=== PATIENT | female | born 1960 | race Caucasian/White ===

== ENCOUNTER → 2020-04-02 08:51 | Outpatient (CLI) | payer MEDICARE, MEDICAID, SELFPAY ==
--- NOTE | 2020-04-02 09:29 | CA_ITS ---
APPROVED REPORT EXAM: Comprehensive 2D, Doppler, and color-flow Echocardiogram Electric Meter Tester: Brittany William RDCS Ht: 5 ft 4 in Wt: 211lbs BSA: 2.00 BP: 131/72 mmHg Indications: CAD,CABG,CVA,HTN,HLP,SMOKER 2D Dimensions LVOT 1.40 cm (M/F) 1.5-2.5 M-Mode Dimensions RVDd 3.11 cm (0.9-2.6) LVDd 3.83 cm (3.5-5.7) LVDs 3.03 cm (3.5-5.7) IVSd 1.02 cm (0.6-1.1) PWd 0.87 cm (0.6-1.1) EF (Teich) 43.10% FS 20.90% EDV (Teich) 63.10 mL ESV (Teich) 35.90 mL LV Diastology E/A Ratio 0.90 Mitral Valve MV A Velocity 73.00 (40-130 cm/s) Left Ventricle Left atrium is mildly enlarged, left ventricle is normal size, mild concentric left ventricular hypertrophy, visually estimated ejection fraction 55% with no regional wall motion abnormality. Grade 1 diastolic dysfunction seen without tissue Doppler evidence of raise left atrial pressure. Right Ventricle Right atrium and right ventricle mildly enlarged with normal contractility. Aortic Valve Aortic valve is minimally thickened and fibrosed, there is no aortic stenosis or aortic insufficiency. Mitral Valve Mitral valve leaflets are minimally thickened, there is mild mitral regurgitation. Tricuspid Valve Tricuspid valve is grossly normal, there is mild tricuspid regurgitation, tricuspid regurgitation jet velocity is inadequate for calculation of the right ventricular systolic pressure. Pulmonic Valve Pulmonic valve is poorly visualized. Great Vessels Aortic root is normal size. Pericardium No significant pericardial effusion noted. Conclusion 1. Mild biatrial enlargement, normal left ventricular size, mild concentric left ventricular hypertrophy, visually estimated ejection fraction 55% with no regional wall motion abnormality, grade 1 diastolic dysfunction seen without tissue Doppler evidence of raise left atrial pressure. 2. Mildly enlarged right ventricle with normal contractility. 3. Mild mitral and tricuspid regurgitation. 4. No significant pericardial effusion noted. Electronically signed by : Juanjo Tabares, 04/03/2020 12:20:46
== END ==
PROVIDERS: PCP Family Medicine; Visit Provider Urology
DX: I20.8 Other forms of angina pectoris (principal); I25.10 Atherosclerotic heart disease of native coronary artery without angina pectoris
CPT/HCPCS: 93306

== ENCOUNTER → 2020-07-30 07:56 | Outpatient (CLI) | payer MEDICARE, MEDICAID, SELFPAY ==
--- NOTE | 2020-07-30 | CA_ITS ---
APPROVED REPORT Exam: Pharmacologic Technologist: Robyn Sharma Ht: 5 ft 4 in Wt: 208 lbs BSA: 1.99 m2 HR: 76 bpm BP: 159/89 mmHg Indications: CAD, Carl Medical History Medications: Levothyroxine,,,,, Isosorbide,,,,, Aspirin,,,,, Gabapentin,,,,, Pantoprazole,,,,, Atorvastatin,,,,, CloPIdogrel,,,,, Baclofen,,,,, BuPROPION,,,,, Fluoxetine,,,,, Nitroglycerin,,,,, DAntrolene,,,,, Stress Test Details Test: LEXISCAN HR Resting HR: 86 bpm Max Heart Rate (APMHR): 161 bpm Max HR Achieved: 122 bpm Target HR (85% APMHR): 136 bpm % of APMHR: 75 Recovery HR: 89 bpm BP Resting BP: 159.0/89.0 mmHg Max BP: 170.0/90.0 mmHg Recovery BP: 152.0/79.0 mmHg ECG Clinical Exercise duration: 04:00 min Highest Stage Achieved: Stress ECG Conclusion Resting EKG: Normal sinus rhythm, low voltage QRS, ST-T abnormalities. Symptoms: Mild shortness of air, stomach discomfort and malaise. No chest pain. Arrhythmias/Ectopy: Rare fusion beats ST-T Changes: Mild exaggeration of baseline abnormalities. Conclusion: Unremarkable Lexiscan stress. Myoview images reported separately. Electronically signed by : Juanjo Tabares, 07/31/2020 10:18:31
--- NOTE | 2020-07-30 07:56 | NM_ITS ---
APPROVED REPORT Exam: Nuclear Stress Test Indication: cad, cabg, htn, hyperlipidemia, tob use, fm hx, sob Patient Location: Outpatient Stress Tech: Robyn Sharma NM Tech:Sabrina Dugan, ARRT, RT (R)(N) Ht: 5 ft 4 in Wt: 208 lbs Bra Size: 40DD BP: 159/89 mmHg BSA: 1.99 m2 BMI: 35.6 History: cad, cabg, htn, hyperlipidemia, tob use, fm hx, sob PT COULD NOT LAY ON HER STOMACH FOR PRONE IMAGES DUE TO MASSIVE STROKE LIMITING HER ABILITY TO ROLL. Procedure: Patient received a 0.4 mg of intravenous Lexiscan, resting heart rate 76 bpm, resting blood pressure 159/89 mmHg, with Lexiscan maximum heart rate achived was 120 bpm which is Less than 85 % of the maximum predicted heart rate and blood pressure was 170/90 mmHg. Electrocardiogram Resting electrocardiogram showed sinus rhythm nonspecific ST-T changes, with Lexiscan there is less than 1.[address] segment depression noted from the baseline EKG, the EKG portion of the Lexiscan is nondiagnostic. Cardiac Stress and Resting SPECT Images: Cardiac Stress and Resting SPECT images were obtained using technetium 99m Myoview 31.4 mCi stress and 10.28 mCi at rest. Gated SPECT for analysis of segmental wall motion and calculation of the ejection fraction also done. Cardiac stress and resting SPECT images show moderate sized area of reversible ischemia involving the anterior anterior apical and apical wall, there is transient ischemic dilatation of the left ventricle also seen raising the concerns for presence of multivessel coronary disease. Computer derived ejection fraction is over 65% with no regional wall motion abnormality, right ventricle is mildly enlarged with normal contractility. Prone images were not obtained due to technical issues. Conclusion: 1. The EKG portion of the Lexiscan is nondiagnostic. 2. Scintigraphic evidence of reversible ischemia involving the anterior, anterior apical and apical wall, there is transient ischemic dilatation of the left ventricle seen raising the concern for presence of multivessel coronary disease, computer derived ejection fraction is over 65% with no regional wall motion abnormality, right ventricle is mildly enlarged with normal contractility. 3. Abnormal Lexiscan Myoview study. Electronically signed by : Juanjo Tabares, 07/31/2020 10:24:12
--- NOTE | 2020-07-30 08:00 | CA_ITS ---
APPROVED REPORT Char Puller: Fanny Reyes RVT Laterality: Bilateral Study Quality: Fair Indications: recnt cva Risk Factors Hypertension: TIA/CVA History Hyperlipidemia Surgery/Intervention Carotid Stent: right Doppler Spectral Velocity Analysis ECA (R) 84.80/28.30 cm/s ECA (L) 117.20/20.90 cm/s dICA (R) 119.10/20.20 cm/s dICA (L) 99.10/22.70 cm/s Ravi (R) 116.00/17.20 cm/s Ravi (L) 76.30/15.40 cm/s pICA (R) 105.90/8.60 cm/s pICA (L) 66.30/17.30 cm/s dCCA (R) 56.70/17.10 cm/s dCCA (L) 79.10/24.70 cm/s pCCA (R) 72.70/16.00 cm/s pCCA (L) 75.50/18.40 cm/s Vert (R) 34.60/11.30 cm/s Vert (L) 87.20/30.00 cm/s ICA/CCA 2.10 ICA/CCA 1.25 Findings Study suggests less than 20% stenosis of the bilateral internal cartoid arteries. Very diffcult study. Antegrade flow seen bilateral vertebral arteries. Conclusion Study suggests less than 20% stenosis of the bilateral internal cartoid arteries. Very diffcult study. Antegrade flow seen bilateral vertebral arteries. Electronically signed by : Wade España MD 07/30/2020 18:12:31
--- NOTE | 2020-07-30 09:49 | HMH.ITSHM ---
Current Home Medications as stated by this patient Rita Blevins or claims representative. []PANTOPRAZOLE NITRO LEVOTHYROXINE ISOSORBIDE GABAPENTIN FLUOXETINE DANTROLENE CLOPIDOGREL BUPROPION BACLOFEN ATORVASTATIN ASA
== END ==
PROVIDERS: PCP Family Medicine; Visit Provider Nurse Practitioner Family
DX: E78.5 Hyperlipidemia, unspecified (principal); F17.200 Nicotine dependence, unspecified, uncomplicated; I11.9 Hypertensive heart disease without heart failure; I25.10 Atherosclerotic heart disease of native coronary artery without angina pectoris; Z86.73 Personal history of transient ischemic attack (TIA), and cerebral infarction without residual deficits; Z95.1 Presence of aortocoronary bypass graft
CPT/HCPCS: 78452; 93017; 93880; A9502; J2785

== ENCOUNTER 2021-02-06 08:20 | Day surgery (SDC) | payer MEDICARE, MEDICAID, SELFPAY ==
[2021-02-06] VITALS (12 sets, daily range): BP systolic 102–180; BP diastolic 40–95; PULSE 71–84; RESP 16–18; O2SAT 96–98; BMI 35.0
--- NOTE | 2021-02-06 | IR_ITS ---
APPROVED REPORT Patient Location: Outpatient PROCEDURES Left heart catheterization Left ventriculogram Selective coronary angiogram Selective engagement of left internal mammary artery with angiography Selective engagement of the saphenous vein graft to the right coronary INDICATION High risk abnormal Myoview, Coronary disease, Angina pectoris, History of coronary bypass surgery Informed consent was obtained prior to the procedure. COMPLICATIONS NONE Estimated Blood Loss: LESS THAN 10 ML TECHNIQUE One percent lidocaine used to anesthetize the right groin. The right femoral artery was accessed via the Seldinger technique and a 5 Afghan sheath was placed in the right femoral artery. A JL 4, JR4 and 3 DRC catheter were used to perform left heart catheterization, left ventriculogram selective coronary angiography as well as selective engagement of the 1vein graft and the left internal mammary artery. At the end of the procedure the patient was transferred to the postop holding area in stable condition for sheath removal. ANGIOGRAPHIC RESULTS The left main artery Has an ostial 10 to 20% stenosis but otherwise widely patent The left anterior descending artery Has 50% proximal stenosis followed by mid vessel stent which has severe in-stent restenosis and then subtotally occluded distally. The circumflex artery Is probably a codominant vessel and is patent in the proximal segment. The terminal obtuse marginal artery which appears to function as a posterior descending artery is a small caliber vessel less than 1.5 mm in diameter. The vessel is patent throughout its natural course The right coronary artery Probably codominant and proximally subtotally occluded The GALO ventriculogram reveals Normal 65% The left ventricular end-diastolic pressure 15 mmHg The left internal mammary artery is widely patent however this is a small vessel which does anastomose onto the mid LAD and provide antegrade flow to the mid and distal LAD The saphenous vein graft to the distal right coronary artery is widely patent IMPRESSION Adequate coronary revascularization as described above Small caliber torres martinez circumflex artery as described above Patent saphenous vein graft to the codominant distal right coronary Anatomically small caliber yet patent GARCIA graft to an anatomically small caliber mid LAD Normal ejection fraction Normal to borderline elevated LVEDP PLAN 1. Continue medical management Electronically signed by : Cody Mueller, 02/06/2021 12:27:25
[2021-02-06 09:48] LABS: Basophils # 0.1 K/mm3 (0-0.2); Basophils % 0.9 % (0.1-2.0); Eosinophils # 0.2 K/mm3 (0.0-0.4); Eosinophils % 2.1 % (0.1-12.0); Hemoglobin 13.8 g/dL (12.2-16.2); Lymphocytes # 2.2 K/mm3 (0.7-4.5); Lymphocytes % 25.2 % (10-50); Mean Corpuscular Hemoglobin 29.5 pg (27.0-31.2); Mean Corpuscular Volume 89.4 fl (81-99); Mean Platelet Volume 7.8 fl (7.4-10.4); Monocytes # 0.5 K/mm3 (0.1-1.0); Monocytes % 5.6 % (1.7-9.3); Neutrophils # 5.8 K/mm3 (1.8-7.8); Neutrophils % 66.2 % (37.0-80.0); Platelet Count 454 K/mm3 (142-424); Red Cell Distribution Width 14.6 % (11.5-17.5); White Blood Count 8.8 K/mm3 (4.8-10.8)
[2021-02-06 09:57] LABS: Chloride 104 mmol/L (98-107); Potassium 4.1 mmoL/L (3.5-5.1); Sodium 139 mmol/L (136-145)
[2021-02-06 10:00] LABS: Blood Urea Nitrogen 11 mg/dl (7-17); Creatinine Clearance Estimated 146 mL/min (50-200); Estimated Glomerular Filt Rate 102 ml/min (>60); GFR (African American) 123 ML/MIN (>60)
[2021-02-06 10:01] LABS: Anion Gap 13.1 mEq/L (5-15); Calcium 9.1 mg/dl (8.4-10.2); Carbon Dioxide 26 mmol/L (22.0-30.0); Glucose 181 mg/dl (74-100)
== END 2021-02-06 14:24 | disposition home or self-care (01) ==
LOC: CATHLAB 08:22
PROVIDERS: PCP Family Medicine; Visit Provider Internal Medicine
DX: I25.118 Atherosclerotic heart disease of native coronary artery with other forms of angina pectoris (principal); Z95.1 Presence of aortocoronary bypass graft; I11.9 Hypertensive heart disease without heart failure; F17.210 Nicotine dependence, cigarettes, uncomplicated; Z79.899 Other long term (current) drug therapy; E03.9 Hypothyroidism, unspecified
CPT/HCPCS: 80048; 85025; 93459; 99152; C1725; C1769; C1894; J1644; Q9967; U0003